=== PATIENT | male | born 1960 | race Caucasian/White ===

== ENCOUNTER 2016-10-01 12:27 | Emergency (ER) | payer OTHER ==
[~2016-10-01] VITALS: Ht 167.6 cm; Wt 81.6 kg
--- NOTE | 2016-10-01 13:17 | ED UPPER/LOWER EXTREMITY COMPL ---
History of Present Illness General Chief Complaint: Laceration Procedure Stated Complaint: RT HAND LAC Source: patient Exam Limitations: no limitations Vital Signs & Intake/Output Vital Signs & Intake/Output Vital Signs Date Time Temp Pulse Resp B/P B/P Pulse O2 O2 Flow FiO2 Mean Ox Delivery Rate 10/01 1431 98.1 84 18 140/77 97 Room Air 10/01 1245 97.4 86 15 135/87 93 Room Air Room Air Allergies Coded Allergies: varenicline (From CHANTIX) (UNKNOWN 10/01/16) Reconcile Medications Aspirin (Aspirin*) 81 MG TAB.CHEW 1 TAB PO QPM HEART HEALTH (Reported) Chlorthalidone 25 MG TABLET 0.5 TAB PO DAILY WATER PILL (Reported) Lansoprazole 15 MG CAPSULE.DR 1 CAP PO DAILY GI (Reported) Losartan (Cozaar) 100 MG TABLET 1 TAB PO QPM HEART (Reported) Simvastatin (Simvastatin*) (Unknown Strength) TABLET (Unknown Dose) PO QPM CHOLESTEROL (Reported) Triage Note: PT TO ED FOR LAC TO R PALM OF HAND AT 11:30. 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 BLEEDING IS CONTROLLED IN TRIAGE WITH DRESSING PLACED BY PT. PT'S LAST TETANUS SHOT WITHIN 10 YEARS. Triage Nurses Notes Reviewed? 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 see below for history Neurological: NONE EENT: NONE Cardiovascular: hypertension, hyperlipidemia Gastrointestinal: GERD, irritable bowel syndrome Hepatic: NONE Renal: NONE Musculoskeletal: NONE Psychiatric: NONE Endocrine: NONE Blood Disorders: NONE Cancer(s): PROSTATE CA [employer]/Reproductive: NONE Surgical History Surgical History: non-contributory Psychosocial History What is your primary language Vietnamese Tobacco Use: Current Daily Use Daily Tobacco Use Amount/Type: => 5 Cigarettes daily ETOH Use: denies use Illicit Drug Use: denies illicit drug use, MEDICAL MARIJUANA Family History Hx Contributory? No Review of Systems Review of Systems Constitutional: Reports: no symptoms. EENTM: Reports: no symptoms. Respiratory: Reports: no symptoms. Cardiovascular: Reports: no symptoms. Gastrointestinal/Abdominal: Reports: no symptoms. Genitourinary: Reports: no symptoms. Musculoskeletal: Reports: see HPI. Skin: Reports: see HPI. Neurological/Psychological: Reports: no symptoms. Hematologic/Endocrine: Reports: see HPI, bleeding. Immunological: Reports: no symptoms. All Other Systems: Reviewed and Negative Physical Exam Physical Exam General Appearance: no apparent distress, alert, comfortable Neurologic/Tendon: normal sensation, normal motor functions, normal tendon functions, responds to pain, no evidence tendon injury, no pulse deficit Skin: normal color Comments: Well-developed well-nourished no apparent distress. HEENT: Atraumatic, extraocular motion intact Neck: Supple, no lymphadenopathy Back: Nontender Respiratory: No respiratory distress Neuro: Alert and oriented x3 Psych: Mood affect normal, normal memory normal judgment. Diagram Hands Front 1) Noted 2 cm flap CLEAN laceration subcutaneous depth no active bleeding full active range of motion noted with 1-5 digit flexion-extension full resisted range of motion noted with flexion extension full resisted range of motion noted with flexion and extension and radial and ulnar deviation no active bleeding Progress Differential Diagnosis: arterial insufficiency, compartment syndrome, contusion, dislocation, DVT, fracture, septic arthritis, sprain, tendon injury Plan of Care: No concerns on tendon deficits on exam. Margins were revised with suture placement bandage and bacitracin was applied. Departure Departure Disposition: HOME OR SELF CARE Condition: Stable Clinical Impression Primary Impression: Laceration of right hand Referrals: ISI GUERRA APRN (PCP/Family) Additional Instructions: As discussed begin to apply bacitracin to the area once a day and then after the fourth day leave area open and dry and clean to improve healing. If you note signs of infection redness, pain, swelling, discharge return to emergency room Return to the emergency room in 7-10 days for suture removal. Keep area dry and clean Departure Forms: Customer Survey General Discharge Information Procedures Laceration/Wound Repair Laceration/Wound Repair: Wound Location: head (RIGHT HAND), upper extremity Wound's Depth, Shape: flap, linear, subcutaneous Wound Length (cm): 2 Wound Explored: clean, no foreign body removed, irrigated extensively Irrigated w/ Saline (ccs): 500 Betadine Prep? Yes Anesthesia: 1% lidocaine Volume Anesthetic (ccs): 5 Wound Repaired With: sutures Suture Size/Type: 5:0 Number of Sutures: 7 Progress: Margins were revised the suture placement patient tolerated well bacitracin bandage was applied
[2016-10-01] MEDS ORDERED: COZAAR100 M1 PO (14:22)
[2016-10-01] MEDS ORDERED: CHLORTHALIDONE25 M1 PO (14:22)
[2016-10-01] MEDS ORDERED: LANSOPRAZOLE15 M1 PO (14:22)
[2016-10-01] MEDS ORDERED: SIMVASTATIN5 M2 PO (14:23)
[2016-10-01] MEDS ORDERED: ASPIRIN81 M4 PO (14:23)
[2016-10-01 14:31] VITALS: BP 140/77
== END 2016-10-01 14:33 ==
LOC: ERH 12:27
DX: S61.411A Laceration without foreign body of right hand, initial encounter (principal); W45.8XXA Other foreign body or object entering through skin, initial encounter; Y93.G1 Activity, food preparation and clean up; Y93.9 Activity, unspecified